=== PATIENT | male | born 1935 | race Caucasian/White ===

== ENCOUNTER 2017-05-27 03:10 | Inpatient (IN) | payer MEDICARE, BC ==
[~2017-05-27] VITALS: Ht 185.4 cm; Wt 81.6 kg
--- NOTE | 2017-05-27 03:25 | NUR ---
ADMITTED TO ER RM 1B AMBULATORY FROM HOME WITH C/O GENERALIZED WEAKNESS. ATTACHED TO MONITORING DEVICES. C-SCOPE SR, BP STABLE. DENIES CHEST PAIN. DR PARSONS CAME IN TO EVALUATE PT.
[2017-05-27] MEDS ORDERED: IV NORMAL SALINE 500 ML BAG IV ONE (03:30)
[2017-05-27] MEDS ORDERED: CINN500C2 PO (03:42)
[2017-05-27] MEDS ORDERED: ALPR0.255 PO (03:42)
[2017-05-27] MEDS ORDERED: ASPI-612 PO (03:42)
[2017-05-27] MEDS ORDERED: PREG50CA PO (03:42)
[2017-05-27] MEDS ORDERED: UBID100C13 PO (03:42)
[2017-05-27] MEDS ORDERED: THIA100T8 PO (03:42)
[2017-05-27] MEDS ORDERED: TAUR1000 PO (03:42)
[2017-05-27] MEDS ORDERED: RED600CA2 PO (03:42)
[2017-05-27] MEDS ORDERED: METO25TA3 PO (03:42)
[2017-05-27] MEDS ORDERED: RESV250C2 PO (03:42)
[2017-05-27] MEDS ORDERED: ASCO-382 PO (03:42)
[2017-05-27] MEDS ORDERED: CRAN300T PO (03:42)
[2017-05-27] MEDS ORDERED: LEVO500C3 PO (03:42)
[2017-05-27] MEDS ORDERED: APIX5TAB PO (03:42)
[2017-05-27] MEDS ORDERED: EZET10TA13 PO (03:42)
[2017-05-27] MEDS ORDERED: OMEG-11 PO (03:42)
[2017-05-27] MEDS ORDERED: ASTA4CAP PO (03:42)
[2017-05-27] MEDS ORDERED: CYAN10009 PO (03:42)
[2017-05-27] MEDS ORDERED: R LI PO (03:42)
[2017-05-27] MEDS ORDERED: FLAX100031 PO (03:42)
[2017-05-27] MEDS ORDERED: MULT1TAB73 PO (03:42)
[2017-05-27] MEDS ORDERED: BILB100C PO (03:42)
[2017-05-27] MEDS ORDERED: MAGN400C PO (03:42)
[2017-05-27] MEDS ORDERED: [UNRECOGNIZED DRUG - CODE] MC (03:42)
[2017-05-27] MEDS ORDERED: CHOL200074 PO (03:42)
[2017-05-27] MEDS ORDERED: TURM500C4 PO (03:42)
[2017-05-27] MEDS ORDERED: RESV1CAP PO (03:42)
[2017-05-27] MEDS ORDERED: [UNRECOGNIZED DRUG - CODE] PO (03:42)
[2017-05-27] MEDS ORDERED: AMLO5TAB2 PO (03:42)
[2017-05-27] MEDS ORDERED: SIMV10TA6 PO (03:42)
[2017-05-27 04:06] LABS: CARBON DIOXIDE 31 mmol/L (21-32); CHLORIDE 106 mmol/L (98-107); CREATININE 1.2 mg/dL (0.6-1.3); GLUCOSE 204 mg/dL (74-106); POTASSIUM 4.8 mmol/L (3.5-5.1); UREA NITROGEN, BLOOD 46 mg/dL (7-18)
[2017-05-27 04:18] LABS: ALANINE AMINOTRANSFERASE 32 U/L (16-63); ALKALINE PHOSPHATASE 58 U/L (50-136); ASPARTATE AMINOTRANSFERASE 16 U/L (15-37); BILIRUBIN,DIRECT 0.1 mg/dL (0.0-0.2); BILIRUBIN,TOTAL 0.6 mg/dL (0.2-1.0); TOTAL PROTEIN, SERUM 6.4 g/dL (6.4-8.2)
[2017-05-27 04:37] LABS: BASOPHILS % (AUTO) 0.5 % (0.0-2.0); EOSINOPHILS # (AUTO) 0.4 K/uL (0.0-0.7); EOSINOPHILS % (AUTO) 3.6 % (0.0-7.0); HEMATOCRIT 35.8 % (40-50); HEMOGLOBIN 12.3 G/DL (14.0-18.0); LYMPHOCYTES # (AUTO) 2.1 K/UL (0.8-4.8); LYMPHOCYTES % (AUTO) 20.9 % (20.5-51.5); MEAN CORPUSCULAR HEMOGLOBIN 30.5 UUG (27.0-31.0); MEAN CORPUSCULAR HGB CONC 34 g/dL (32.0-37.0); MONOCYTES # (AUTO) 0.6 K/UL (0.1-1.30); MONOCYTES % (AUTO) 5.7 % (0.0-11.0); NEUTROPHILS # (AUTO) 6.8 K/UL (1.8-8.9); NEUTROPHILS % (AUTO) 69.3 % (38.5-71.5); PLATELET COUNT (AUTO) 219 K/UL (150-450); RED BLOOD CELL COUNT(AUTO) 4.02 MIL/UL (4.7-6.1); WHITE BLOOD COUNT (AUTO) 9.9 K/UL (4.0-11.2)
[2017-05-27 04:58] LABS: *OCCULT BLOOD STOOL POSITIVE (NEGATIVE)
[2017-05-27] MEDS ORDERED: IV NORMAL SALINE 1000 ML BAG IV ONE (05:00)
[2017-05-27] MEDS ORDERED: ALPRAZOLAM 0.25 MG TABLET PO PRN (05:30)
--- NOTE | 2017-05-27 05:38 | NUR ---
REPORT GIVEN TO NEIL RN FOR CONTINUITY OF CARE.
[2017-05-27] MEDS ORDERED: ONDANSETRON 4 MG/2 ML VIAL IV PRN (05:45)
[2017-05-27] MEDS ORDERED: HYDROCODONE/APAP 5-325MG TABLET PO PRN (05:45)
[2017-05-27] MEDS ORDERED: MAGNESIUM HYDROXIDE 30 ML LIQUID UDC PO PRN (05:45)
[2017-05-27] MEDS ORDERED: ACETAMINOPHEN 325 MG TABLET PO PRN (05:45)
[2017-05-27] MEDS ORDERED: Z GUARD REMEDY PASTE 57 GM TUBE TOP PRN (05:45)
--- NOTE | 2017-05-27 05:53 | NUR ---
Pt. admitted to Telemetry , under care of Dr. Banuelos. Dx: GI bleed. Belongs List completed
--- NOTE | 2017-05-27 06:00 | NUR ---
Patient does not qualify for code Sepsis per ER , Dr Robins.
--- NOTE | 2017-05-27 06:00 | NUR ---
PT TRANSFERRED TO TELEMETRY FROM ER. NO ACUTE DISTRESS NOTED UPON ARRIVAL. V/S ARE WNL. DENIES ANY PAIN OR DISCOMFORT BUT C/O GENERALIZED WEAKNESS TO LOWER EXTREMITIES. CALL LIGHT PLACED WITHIN REACH. AWAITING MD ORDERS. PT ABLE TO FOLLOW SIMPLE COMMANDS. CONTINUE TO MONITOR.
[2017-05-27 06:32] VITALS: BP 125/45
[2017-05-27 06:45] LABS: BASOPHILS # (AUTO) 0.1 K/uL (0.0-8.0); BASOPHILS % (AUTO) 0.7 % (0.0-2.0); EOSINOPHILS # (AUTO) 0.1 K/uL (0.0-0.7); HEMATOCRIT 32.6 % (40-50); HEMOGLOBIN 11.4 G/DL (14.0-18.0); LYMPHOCYTES # (AUTO) 1.2 K/UL (0.8-4.8); LYMPHOCYTES % (AUTO) 13.4 % (20.5-51.5); MEAN CORPUSCULAR HEMOGLOBIN 31.3 UUG (27.0-31.0); MEAN CORPUSCULAR HGB CONC 35 g/dL (32.0-37.0); MEAN CORPUSCULAR VOLUME 89.5 FL (82.0-92.0); MONOCYTES # (AUTO) 0.4 K/UL (0.1-1.30); MONOCYTES % (AUTO) 4.2 % (0.0-11.0); NEUTROPHILS # (AUTO) 7.3 K/UL (1.8-8.9); NEUTROPHILS % (AUTO) 80.7 % (38.5-71.5); PLATELET COUNT (AUTO) 173 K/UL (150-450); RED BLOOD CELL COUNT(AUTO) 3.64 MIL/UL (4.7-6.1); WHITE BLOOD COUNT (AUTO) 9.1 K/UL (4.0-11.2)
[2017-05-27 06:59] LABS: ALANINE AMINOTRANSFERASE 28 U/L (16-63); ALKALINE PHOSPHATASE 67 U/L (50-136); ASPARTATE AMINOTRANSFERASE 15 U/L (15-37); BILIRUBIN,TOTAL 0.4 mg/dL (0.2-1.0); CARBON DIOXIDE 25 mmol/L (21-32); CHLORIDE 109 mmol/L (98-107); GLUCOSE 148 mg/dL (74-106); TOTAL PROTEIN, SERUM 5.8 g/dL (6.4-8.2); UREA NITROGEN, BLOOD 47 mg/dL (7-18)
--- NOTE | 2017-05-27 07:25 | NUR ---
received report from manufacturing shift supervisor nurse, patient in bed awake, no evidence of distress noted, bed in low position, side rails up x2. Caregiver at bedside, requested to bring medications from home to reconcile.
[2017-05-27 07:28] LABS: *BILIRUBIN,URIN NEGATIVE (NEGATIVE); *BLOOD, URINE NEGATIVE (NEGATIVE); *CLARITY,URINE CLEAR (CLEAR); *COLOR,URINE YELLOW (YELLOW); *KETONES,URINE 2+ (NEGATIVE); *PROTEIN,URINE NEGATIVE (NEGATIVE); *UROBILINOGEN,URINE 0.2 E.U./dl (NORMAL); LEUKOCYTE ESTERASE ,URINE NEGATIVE (NEGATIVE); NITRITE, URINE NEGATIVE (NEGATIVE); PH,URINE 5.5 (5.0-8.0)
[2017-05-27 07:29] LABS: UGLUCOSE 1+ (NEGATIVE)
[2017-05-27 07:43] LABS: WBC,URINE 0-3 /HPF (0-3)
[2017-05-27 07:44] LABS: BACTERIA,URINE FEW /HPF (NONE SEEN); SQUAMOUS EPITHELIAL CELL,UR FEW /HPF (NONE SEEN); YEAST,URINE FEW /HPF (NONE SEEN)
[2017-05-27] MEDS: THIAMINE HCL 100 MG TABLET PO SCH (08:48)
[2017-05-27] MEDS: AMLODIPINE 5 MG TABLET PO SCH (08:49)
[2017-05-27] MEDS: CYANOCOBALAMIN 1,000 MCG TABLET PO SCH (08:49)
[2017-05-27 11:41] VITALS: BP 103/53
[2017-05-27 16:20] VITALS: BP 126/49
[2017-05-27 16:51] LABS: HEMATOCRIT 28.5 % (36.7-47.1); HEMOGLOBIN 9.9 g/dL (12.5-16.3)
[2017-05-27] MEDS: EZETIMIBE 10 MG TABLET PO SCH (17:01)
[2017-05-27] MEDS: SIMVASTATIN 10 MG TABLET PO SCH (17:02)
[2017-05-27] MEDS: METOPROLOL SUCCINATE XL 25 MG TAB.SR.24H PO SCH (17:02)
--- NOTE | 2017-05-27 18:55 | NUR ---
Patient is in bed, no evidence of distress noted at this time. Patient is to be NPO after midnight to have an EGD in the morning. Consent is signed, and all questions were answered by Dr. Acharya.
--- NOTE | 2017-05-27 19:30 | NUR ---
nsg: pt received a/o x 4, no acute distress noted. lungs sounds clear to auscultate. denies sob. tele, SR. at the bedside. cont to monitor.
[2017-05-27 20:45] VITALS: BP 136/60
--- NOTE | 2017-05-27 20:45 | NUR ---
nsg: per , pt fell in the toilet, unwitnessed. obtained skin tear on left leg. pt had large bowel movement, black stool. pt stated feels weak. pt denies pain due to fall. notified Jersey Hector NP. no new order received. at the bedside.
[2017-05-27 20:53] VITALS: BP 114/60
[2017-05-27] MEDS ORDERED: IV NS 1000 ML 1,000 ML IV PRN (21:15)
[2017-05-28] VITALS (14 sets, daily range): BP systolic 106–145; BP diastolic 43–64
--- NOTE | 2017-05-28 00:50 | NUR ---
NSG: PT called wants to go to the toilet for bowel movement. pt feels weak, looks pale, diaphoretic. pt sitting at the edge of the bed, but had a blank stare, unresponsive for few seconds. pupils dilated. rapid response called. put back to bed. apply O2 via 2L nc. v/s as follows: 97.7F ORAL, 102 hr, 16 rr, 106/50, O2 sat 99% on RA. pt is awake now. still diaphoretic. acu check is 191. will cont to monitor and notify md. Addendum: 05/28/17 at 0107 by JOSHUA RIVERA RN tele, showed ST with hr 110.
[2017-05-28 01:07] LABS: HEMATOCRIT 24.3 % (40-50); HEMOGLOBIN 8.4 G/DL (14.0-18.0)
--- NOTE | 2017-05-28 02:13 | NUR ---
nsg:spoke with Dr. Banuelos regarding patient's episode of passing out, latest h/h 8.4/24.3. no new order received.
--- NOTE | 2017-05-28 04:10 | NUR ---
nsg: pt vomitted emesis with dark red blood. v/s stable. medicated with zofran. cont to monitor.
[2017-05-28 07:00] LABS: CARBON DIOXIDE 23 mmol/L (21-32); CHLORIDE 114 mmol/L (98-107); CHOLESTEROL 91 mg/dL (<200); CREATININE 1.2 mg/dL (0.6-1.3); GLUCOSE 223 mg/dL (74-106); HDL CHOLESTEROL 30 mg/dL (40-60); MAGNESIUM 2.2 mg/dL (1.8-2.4); PHOSPHOROUS 1.8 mg/dL (2.5-4.9); TRIGLYCERIDES 215 MG/DL (30-150)
[2017-05-28 07:14] LABS: LYMPHOCYTES # (AUTO) 1.9 K/uL (20.0-40.0); MONOCYTES # (AUTO) 0.9 K/uL (2.0-10.0); PLATELET COUNT (AUTO) 174 K/uL (152-348)
[2017-05-28 07:18] LABS: UREA NITROGEN, BLOOD 70 mg/dL (7-18)
--- NOTE | 2017-05-28 07:20 | NUR ---
RECEIVED REPORT FROM GENERAL SERVICE TECHNICIAN NURSE, PATIENT IN BED AWAKE, REPORTS SEVERE WEAKNESS, RESPONDING TO VERBAL COMMANDS, NO SHORTNESS OF BREATH, PATIENT ADVISED TO STAY IN BED AND CALL FOR ASSISTANCE IF NEEDED.
[2017-05-28 07:25] LABS: BASOPHILS % (AUTO) 0.2 % (0.0-2.0); LYMPHOCYTES % (AUTO) 13.2 % (20.5-51.5); MEAN CORPUSCULAR HGB CONC 34 g/dL (32.5-36.3); MEAN CORPUSCULAR VOLUME 91.2 fL (73.0-96.2); MONOCYTES % (AUTO) 6.1 % (0.0-11.0); NEUTROPHILS # (AUTO) 11.7 K/uL (1.8-8.9); NEUTROPHILS % (AUTO) 80.5 % (38.5-71.5)
[2017-05-28 07:27] LABS: RED BLOOD CELL COUNT(AUTO) 2.36 MIL/uL (4.06-5.63); WHITE BLOOD COUNT (AUTO) 14.5 K/uL (3.6-10.2)
--- NOTE | 2017-05-28 07:28 | NUR ---
CRITICAL LABS: REPORT FROM LAB ON CRITICAL VALUES HEMOGLOBIN 7.3. HEMATOCRIT 21.5 RBC 2.36
[2017-05-28 07:32] LABS: HEMATOCRIT 21.5 % (36.7-47.1); HEMOGLOBIN 7.3 g/dL (12.5-16.3)
[2017-05-28] MEDS: THIAMINE HCL 100 MG TABLET PO SCH (09:00)
[2017-05-28] MEDS: AMLODIPINE 5 MG TABLET PO SCH (09:00)
[2017-05-28] MEDS: CYANOCOBALAMIN 1,000 MCG TABLET PO SCH (09:00)
[2017-05-28] MEDS: METOPROLOL SUCCINATE XL 25 MG TAB.SR.24H PO SCH ×2 (09:00→17:05)
[2017-05-28] MEDS ORDERED: IV NS 1000 ML 1,000 ML IV SCH (09:30)
[2017-05-28] MEDS ORDERED: IV NORMAL SALINE 500 ML IV ONE (09:30)
--- NOTE | 2017-05-28 10:45 | NUR ---
started blood transfussion on patient. 1 unit.
--- NOTE | 2017-05-28 11:26 | NUR ---
PATIENT TRANSPORTED TO OR FOR PROCEDURE
[2017-05-28] MEDS ORDERED: IV 1/2NS 1000 ML 1,000 ML IV PRN (11:30)
[2017-05-28] MEDS ORDERED: IV NORMAL SALINE 1000 ML BAG IV ONE (12:44)
[2017-05-28] MEDS ORDERED: PHENYLEPHRINE 10 MG/1 ML VIAL MC ONE (12:44)
[2017-05-28] MEDS ORDERED: PROPOFOL 1,000 MG/100 ML BOTTLE IV ONE (12:44)
[2017-05-28] MEDS ORDERED: LIDOCAINE HCL 1% 20 ML VIAL MC ONE (12:44)
[2017-05-28] MEDS ORDERED: PROPOFOL 200 MG/20 ML BOTTLE IV ONE (12:44)
--- NOTE | 2017-05-28 13:30 | NUR ---
Patient returned from surgery, blood is still running. Patient tolerating well. Patient is mildly lethargic, but following [id number] and making needs known.
[2017-05-28 15:27] LABS: HEMATOCRIT 24.9 % (40-50); HEMOGLOBIN 8.6 G/DL (14.0-18.0)
[2017-05-28] MEDS: SUCRALFATE 1 G TABLET PO SCH ×2 (17:04→20:16)
[2017-05-28] MEDS: SIMVASTATIN 10 MG TABLET PO SCH (17:05)
[2017-05-28] MEDS: EZETIMIBE 10 MG TABLET PO SCH (17:05)
[2017-05-28] MEDS ORDERED: NEUTRA PHOS PACKET PO ONE (17:30)
--- NOTE | 2017-05-28 19:02 | NUR ---
patient in bed, no evidence of distress noted, bed in low position, side rails up x2. at bedside, and ice cream brought by family has been put into freezer.
--- NOTE | 2017-05-28 20:00 | NUR ---
RECEIVED PT'S A/A/O X4 ,LOOKED PALE;S/P EGD TODAY,DENIED OF PAIN OR ANY DISCOMFORT.ON IVF ORDER.PT'S AT THE BEDSIDE.UPDATED THE PLAN OF CARE TO THEM;THEY VERBALIZED UNDERSTANDING AND COOPERATIVE NOTED.EDUCATED TO PT DUE TO THE ORDER TO REPEAT H/H TONIGHT;THEY VERBALIZED UNDERSTANDING NOTED.TELEMETRY'S SR 90/MIN.KEPT CALL-LIGHT WITHIN REACH.
[2017-05-28 21:49] LABS: HEMATOCRIT 20.2 % (40-50)
--- NOTE | 2017-05-28 21:50 | NUR ---
GOT THE CRITICAL VALUE FOR H/H WAS 7.0/20.2;READ BACK TO CONFIRM.ALREADY HAD A STANDING ORDER FROM ;EDUCATED TO PT DUE TO THE ORDER TO TRANSFUSE 1 UNIT PRBC;PT VERBALIZED UNDERSTANDING NOTED COOPERATIVE NOTED.WILL FOLLOWED UP.
[2017-05-29] VITALS (13 sets, daily range): BP systolic 114–144; BP diastolic 42–59
--- NOTE | 2017-05-29 01:55 | NUR ---
PRBC 1 UNIT TRANSFUSION WAS COMPLETE AT THIS TIME;PT TOLERATED WELL NOTED.MAINTAINED IVF:1/2 NSS @ 100 ML/HR.TELEMETRY'S SR 80/MIN.CONTINUED MONITORING TO PT.KEPT COMFORT.CALL-LIGHT WITHIN REACH.
--- NOTE | 2017-05-29 06:00 | NUR ---
PT'S COMFORTABLE ON BED;DENIED OF PAIN OR ANY DISCOMFORT.TELEMETRY'S SR 82/MIN.NO DISTRESS NOTED IN THE SHIFT.NO INFILTRATION AT THE SITE NOTED.CONTINUED MONITORING TO PT.
[2017-05-29 07:16] LABS: CARBON DIOXIDE 22 mmol/L (21-32); CHLORIDE 117 mmol/L (98-107); CREATININE 1.1 mg/dL (0.6-1.3); GLUCOSE 129 mg/dL (74-106); PHOSPHOROUS 2.6 mg/dL (2.5-4.9); POTASSIUM 4.1 mmol/L (3.5-5.1); UREA NITROGEN, BLOOD 39 mg/dL (7-18)
--- NOTE | 2017-05-29 07:20 | NUR ---
RECEIVED REPORT FROM WIRE ANNEALER NURSE, PATIENT IN BED AWAKE, COMPLAINING OF CONSTIPATION AND THE NEED TO EVACUATE, REQUESTING ENEMA, SUGGESTED TYING PRUNE JUICE FIRST, AND PATIENT AGREED. NO EVIDENCE OF SHORTNESS OF BREATH, NO PAIN REPORTED. BED IN LOW POSITION, SIDE RAILS UP X2, AT BEDSIDE.
[2017-05-29 07:23] LABS: BASOPHILS % (AUTO) 0.3 % (0.0-2.0); EOSINOPHILS # (AUTO) 0.1 K/uL (0.0-0.7); EOSINOPHILS % (AUTO) 0.5 % (0.0-7.0); HEMATOCRIT 22.6 % (36.7-47.1); HEMOGLOBIN 7.7 g/dL (12.5-16.3); LYMPHOCYTES # (AUTO) 2.3 K/uL (20.0-40.0); LYMPHOCYTES % (AUTO) 15.4 % (20.5-51.5); MEAN CORPUSCULAR HEMOGLOBIN 31.3 uug (23.8-33.4); MEAN CORPUSCULAR HGB CONC 34 g/dL (32.5-36.3); MEAN CORPUSCULAR VOLUME 91.7 fL (73.0-96.2); MONOCYTES # (AUTO) 1.1 K/uL (2.0-10.0); MONOCYTES % (AUTO) 7.6 % (0.0-11.0); NEUTROPHILS # (AUTO) 11.4 K/uL (1.8-8.9); NEUTROPHILS % (AUTO) 76.2 % (38.5-71.5)
[2017-05-29 07:35] LABS: RED BLOOD CELL COUNT(AUTO) 2.47 MIL/uL (4.06-5.63)
[2017-05-29 07:36] LABS: PLATELET COUNT (AUTO) 116 K/uL (152-348)
[2017-05-29] MEDS: SUCRALFATE 1 G TABLET PO SCH ×4 (07:47→21:06)
[2017-05-29] MEDS: AMLODIPINE 5 MG TABLET PO SCH ×2 (09:00→10:01)
[2017-05-29] MEDS: THIAMINE HCL 100 MG TABLET PO SCH (10:00)
[2017-05-29] MEDS: METOPROLOL SUCCINATE XL 25 MG TAB.SR.24H PO SCH ×2 (10:01→17:27)
[2017-05-29] MEDS: CYANOCOBALAMIN 1,000 MCG TABLET PO SCH (10:01)
[2017-05-29] MEDS: PANTOPRAZOLE SODIUM 40 MG VIAL IV SCH (10:08)
[2017-05-29 17:11] LABS: HEMATOCRIT 25.4 % (40-50); HEMOGLOBIN 8.6 G/DL (14.0-18.0)
[2017-05-29] MEDS: EZETIMIBE 10 MG TABLET PO SCH (17:28)
[2017-05-29] MEDS: SIMVASTATIN 10 MG TABLET PO SCH (17:28)
[2017-05-29] MEDS: IV D5W 1000ML 1,000 ML IV PRN (17:42)
--- NOTE | 2017-05-29 18:50 | NUR ---
PATIENT HAD 1 UNIT OF BLOOD TRANSFUSED TODAY, TOLERATED WELL. PATIENT SEEN BY DR YOO AND GIVEN FOLLOW UP INFORMATION AND TEACHING. PATIENT IS CURRENTLY IN BED, NO EVIDENCE OF DISTRESS NOTED, BED IN LOW POSITION, SIDE RAILS UP X2. AT BEDSIDE.
[2017-05-30] VITALS (16 sets, daily range): BP systolic 105–144; BP diastolic 41–60
[2017-05-30] MEDS: SUCRALFATE 1 G TABLET PO SCH ×4 (06:35→21:03)
[2017-05-30 06:50] LABS: CARBON DIOXIDE 26 mmol/L (21-32); CHLORIDE 114 mmol/L (98-107); GLUCOSE 117 mg/dL (74-106); POTASSIUM 3.5 mmol/L (3.5-5.1); UREA NITROGEN, BLOOD 17 mg/dL (7-18)
[2017-05-30 06:57] LABS: EOSINOPHILS # (AUTO) 0.3 K/uL (0.0-0.7); HEMATOCRIT 21.8 % (36.7-47.1); MONOCYTES # (AUTO) 0.8 K/uL (2.0-10.0)
[2017-05-30 07:07] LABS: BASOPHILS # (AUTO) 0.1 K/uL (0.0-8.0); BASOPHILS % (AUTO) 0.6 % (0.0-2.0); EOSINOPHILS % (AUTO) 2.6 % (0.0-7.0); HEMOGLOBIN 7.6 g/dL (12.5-16.3); LYMPHOCYTES # (AUTO) 2.1 K/uL (20.0-40.0); LYMPHOCYTES % (AUTO) 21.7 % (20.5-51.5); MEAN CORPUSCULAR HEMOGLOBIN 32.2 uug (23.8-33.4); MEAN CORPUSCULAR HGB CONC 35 g/dL (32.5-36.3); MEAN CORPUSCULAR VOLUME 92.1 fL (73.0-96.2); MONOCYTES % (AUTO) 7.7 % (0.0-11.0); NEUTROPHILS # (AUTO) 6.7 K/uL (1.8-8.9); NEUTROPHILS % (AUTO) 67.4 % (38.5-71.5); PLATELET COUNT (AUTO) 98 K/uL (152-348); RED BLOOD CELL COUNT(AUTO) 2.36 MIL/uL (4.06-5.63); WHITE BLOOD COUNT (AUTO) 9.9 K/uL (3.6-10.2)
[2017-05-30] MEDS: IV D5W 1000ML 1,000 ML IV PRN (07:26)
[2017-05-30 08:01] LABS: BAND % (MANUAL) 1 % (0-10); BASOPHILS % (MANUAL) 1 % (0-2); EOSINOPHILS % (MANUAL) 1 % (0-8); LYMPHOCYTES % (MANUAL) 26 % (20-40); METAMYELOCYTES % 1 % (0-1); MONOCYTES % (MANUAL) 4 % (2-10); NEUTROPHILS % (MANUAL) 66 % (42-75)
[2017-05-30] MEDS: PANTOPRAZOLE SODIUM 40 MG VIAL IV SCH (08:27)
[2017-05-30] MEDS: AMLODIPINE 5 MG TABLET PO SCH (08:27)
[2017-05-30] MEDS: THIAMINE HCL 100 MG TABLET PO SCH (08:28)
[2017-05-30] MEDS: CYANOCOBALAMIN 1,000 MCG TABLET PO SCH (08:28)
[2017-05-30] MEDS: METOPROLOL SUCCINATE XL 25 MG TAB.SR.24H PO SCH ×2 (08:29→17:08)
--- NOTE | 2017-05-30 08:30 | NUR ---
AWAKE COOPERATE WELL NO SOB OR PAIN CONTINUE IVF FAMILY AT BEDSIDE RESTING WELL WITH CALL LIGHT IN REACH
--- NOTE | 2017-05-30 10:00 | NUR ---
Mack MILTON SEE PATIENT AND LAB RESULT AND ORDER TO GIVE 2 UNIT OF PRBC TODAY
--- NOTE | 2017-05-30 12:45 | NUR ---
BLOOD TRANSFUSION START TITA PROCEDURE WELL NO REACTION VS TAKEN STABLE NO FEVER FAMILY AT BEDSIDE
--- NOTE | 2017-05-30 15:45 | NUR ---
FIRST UNIT FINISHED VS STABLE NO REACTION RESTING WELL
[2017-05-30] MEDS: EZETIMIBE 10 MG TABLET PO SCH (17:09)
[2017-05-30] MEDS: SIMVASTATIN 10 MG TABLET PO SCH (17:09)
--- NOTE | 2017-05-30 17:45 | NUR ---
SECOND UNIT OF PRBC GIVEN NO REACTION VS STABLE FAMILY AT BEDSIDE EAT DINNER WELL
--- NOTE | 2017-05-30 18:00 | NUR ---
HEEMODYNAMIC STATUS STABLE PAIN UNDER CONTROL NO ACUTE DISTRESS SAFETY MEASURE PROVIDED CALL LIGHT IN REACH
[2017-05-30 20:58] LABS: HEMATOCRIT 29.1 % (40-50); HEMOGLOBIN 9.7 G/DL (14.0-18.0)
[2017-05-31 00:14] VITALS: BP 124/48
[2017-05-31 04:00] VITALS: BP 125/48
[2017-05-31] MEDS: SUCRALFATE 1 G TABLET PO SCH ×2 (06:32→11:54)
[2017-05-31 06:43] LABS: BASOPHILS # (AUTO) 0.1 K/uL (0.0-8.0); BASOPHILS % (AUTO) 0.7 % (0.0-2.0); EOSINOPHILS # (AUTO) 0.4 K/uL (0.0-0.7); EOSINOPHILS % (AUTO) 4.5 % (0.0-7.0); LYMPHOCYTES # (AUTO) 2.4 K/uL (20.0-40.0); LYMPHOCYTES % (AUTO) 28.7 % (20.5-51.5); MEAN CORPUSCULAR HEMOGLOBIN 31.2 uug (23.8-33.4); MEAN CORPUSCULAR HGB CONC 34 g/dL (32.5-36.3); MEAN CORPUSCULAR VOLUME 90.9 fL (73.0-96.2); MONOCYTES # (AUTO) 0.7 K/uL (2.0-10.0); MONOCYTES % (AUTO) 8.2 % (0.0-11.0); NEUTROPHILS # (AUTO) 4.8 K/uL (1.8-8.9); NEUTROPHILS % (AUTO) 57.9 % (38.5-71.5); PLATELET COUNT (AUTO) 120 K/uL (152-348); RED BLOOD CELL COUNT(AUTO) 3.52 MIL/uL (4.06-5.63); WHITE BLOOD COUNT (AUTO) 8.4 K/uL (3.6-10.2)
[2017-05-31 07:40] LABS: CARBON DIOXIDE 27 mmol/L (21-32); CHLORIDE 109 mmol/L (98-107); GLUCOSE 107 mg/dL (74-106); POTASSIUM 3.8 mmol/L (3.5-5.1); UREA NITROGEN, BLOOD 11 mg/dL (7-18)
--- NOTE | 2017-05-31 08:00 | NUR ---
awake alert and oriented, at bed side, denies of pain, no shortness of breath noted, on 2l/nc 02, discussed plan of care- pt states "i want to go home", will inform MD on rounds, safety measures maintained, call light within reach
[2017-05-31] MEDS: AMLODIPINE 5 MG TABLET PO SCH (09:00)
[2017-05-31] MEDS: METOPROLOL SUCCINATE XL 25 MG TAB.SR.24H PO SCH (09:04)
[2017-05-31] MEDS: THIAMINE HCL 100 MG TABLET PO SCH (09:05)
[2017-05-31] MEDS: PANTOPRAZOLE SODIUM 40 MG VIAL IV SCH (09:07)
[2017-05-31] MEDS: CYANOCOBALAMIN 1,000 MCG TABLET PO SCH (09:08)
[2017-05-31] MEDS ORDERED: SUCR1TAB PO (10:44)
[2017-05-31] MEDS ORDERED: ASPI81TA31 PO (10:44)
[2017-05-31] MEDS ORDERED: PANT40TA2 PO (10:44)
[2017-05-31 11:29] VITALS: BP 117/46
--- NOTE | 2017-05-31 11:55 | NUR ---
discharge instructions given- verbalized understanding, medications instructions by pharmacist, verbalized understanding as well. saline lock removed- no swelling/redness noted on site, picture taken of skin tear on the right leg- covered kathrine coheng.
--- NOTE | 2017-05-31 12:45 | NUR ---
escorted to car per w/c by [employer] makeup artist in stable condition under 's care, all belongings with him
[2017-06-01] MEDS ORDERED: PANTOPRAZOLE SODIUM 40 MG TABLET.DR PO SCH (07:00)
== END 2017-05-31 12:45 | disposition home or self-care (01) | DRG 378 ==
LOC: ER 03:17 → TELE 05:45
PROVIDERS: ADMIT Internal Medicine; ATTEND Internal Medicine
PROC: 0D578ZZ Destruction of Stomach, Pylorus, Via Natural or Artificial Opening Endoscopic (ICD-10-PCS; 2017-05-28)
PROC: 0D758ZZ Dilation of Esophagus, Via Natural or Artificial Opening Endoscopic (ICD-10-PCS; 2017-05-28)
PROC: 30233N1 Transfusion of Nonautologous Red Blood Cells into Peripheral Vein, Percutaneous Approach (ICD-10-PCS; 2017-05-28)
PROC: 0DB78ZX Excision of Stomach, Pylorus, Via Natural or Artificial Opening Endoscopic, Diagnostic (ICD-10-PCS; principal; 2017-05-28 11:30)
DX: K25.0 Acute gastric ulcer with hemorrhage (principal); D62 Acute posthemorrhagic anemia; E87.2 Acidosis; E87.0 Hyperosmolality and hypernatremia; G62.9 Polyneuropathy, unspecified; K22.2 Esophageal obstruction; I48.0 Paroxysmal atrial fibrillation; E78.5 Hyperlipidemia, unspecified; E03.9 Hypothyroidism, unspecified; D72.829 Elevated white blood cell count, unspecified; E86.0 Dehydration; I10 Essential (primary) hypertension; I25.10 Atherosclerotic heart disease of native coronary artery without angina pectoris; Z79.01 Long term (current) use of anticoagulants; Z85.038 Personal history of other malignant neoplasm of large intestine; Z98.61 Coronary angioplasty status; R55 Syncope and collapse; Z90.49 Acquired absence of other specified parts of digestive tract
CPT/HCPCS: 36415; 70030-TC; 71010; 83605; 83735; 84100; 84443; 85018; 85025; 85730; 86677; 86850; 86900; 86901; 86920; 87040; 87086; 93005; A4217; A4663; C9113; J2370; J2405; J3490; J7030; P9016-BL; P9021